=== PATIENT | female | born 1990 | race Hispanic/Latino ===

== ENCOUNTER 2024-08-20 09:20 | Emergency (ER) | payer OTHER, SELFPAY ==
[2024-08-20 09:22] VITALS: BP 123/82
--- NOTE | 2024-08-20 10:28 | ED.GENMED ---
History of Present Illness
General
Chief Complaint: Abdominal Pain
Source: patient
Exam Limitations: none
Time Seen by Provider: 08/20/24 10:05
Nursing documentation reviewed up to this point in time: agreed with
History of Present Illness
History of Present Illness:
34-year-old female presents to the ER for evaluation of left flank pain that has been persistent for 3 weeks. She denies any actual injury. She reports it is there constantly but seems to be worse with movement. She denies any shortness of breath
rib pain. She denies any urinary frequency urgency or dysuria. She denies any associated nausea vomiting rash.
She did take Tylenol for pain which does not seem to relieve her symptoms. She has not taken anything today for pain.
She denies any shortness of breath or rib pain. Denies any recent injury. Denies any lower extremity swelling. She has a history of tubal ligation she does not smoke not on oral contraceptives /hormones no prior history of DVT PE.
Past History
Past History
ED Past Medical History: None
ED Past Surgical History: None
Social History
Tobacco: Non-smoker
Alcohol: None
Drug: None
Personal:
Living: with family
Employment: Not employed
Family History
Family History: Other (Noncontributory)
Review of Systems
Review of Systems
Allergies reviewed?: Yes
All Other Systems: ROS reviewed and negative except as documented in HPI and ROS
Constitutional: Reports no symptoms; Denies fever, fatigue or chills
Respiratory: Reports no symptoms; Denies trouble breathing
Cardiac: Reports no symptoms
ABD/GI: Denies nausea or vomiting
: Reports flank pain; Denies dysuria, frequency or difficulty voiding
Musculoskeletal: Reports no symptoms
Skin: Reports no symptoms
Hematologic/Lymphatic: Reports no symptoms
Psychiatric: Reports no symptoms
Phy Exam
General Physical Exam
General Presentation: no apparent distress
General age: appears stated age
General Skin: warm and dry
General Habitus: normal
General Mental: alert
General Hydration: appears well hydrated
Pulmonary Exam
Pulmonary Exam: lungs clear and no respiratory distress
Gastrointestinal Exam
Gastrointestinal Exam: non tender and soft
Neurological Exam
Neurological Exam: alert and oriented x3
Musculoskeletal Exam
Musculoskeletal Exam: full ROM
Skin Exam
Skin Exam: normal color and warm/dry
Psychiatric Exam
Psychiatric Exam: normal mood/affect
Course
Orders/Labs/Results
Orders:
Orders
08/20/24 10:38
IV Insert/Care/Rem.- Treatment PRN
08/20/24 10:41
CT Abd/pel Without Iv Or Oral Urgent
Comment:
Reason For Exam: left flank pain
08/20/24 10:44
Complete Blood Count/With Diff Urgent
Comprehensive Metabolic Panel Urgent
HCG, Serum Qualitative Screen Urgent
Comment: ADD
Urinalysis Reflex To Culture Urgent
Date Specimen was Collected: 08/20/24
Time Specimen was Collected: 10:42
08/20/24 10:47
Add On- LAB Urgent
Tests Added?: hcg qualitative
08/20/24 11:33
Ketorolac [Toradol] 15 mg IV NOW STA
Abnormal Lab Results
08/20/24
10:44
MPV 10.5 H fL
(7.4-10.4)
Creatinine 0.5 L mg/dL
(0.6-1.0)
08/20/24 10:44
08/20/24 10:44
Vital Signs
Initial and Last Documented VS:
Initial Vital Signs
Temp Pulse Resp BP Pulse Ox
98.2 F 75 16 123/82 98
08/20/24 09:22 08/20/24 09:22 08/20/24 09:22 08/20/24 09:22 08/20/24 09:22
Last Documented Vital Signs
Temp Pulse Resp BP Pulse Ox
98.2 F 74 16 121/77 100
08/20/24 09:22 08/20/24 11:13 08/20/24 11:13 08/20/24 11:13 08/20/24 11:13
[employer] Super[employer] consulted with Physician
[employer] Supervisor consulted with physician?: Yes
Name of Physician Consulted: Chet
MDM/Problems Addressed
Differential Diagnosis Includes:
not limited to: Muscular pain less likely renal colic.
MDM/Problems Addressed:
Symptoms are likely muscular. Patient points to her left flank area however does not present like a kidney stone pain is worse with movement. She has no pain in the rib or chest area she is not short of breath she is nontachycardic nontachypneic
afebrile lungs are clear no DVT PE risk factors. Urinalysis is negative CAT scan done to rule out kidney stone which was negative. She had complete relief with Toradol pain is currently resolved. She has been taking Tylenol at home however I did
advise her to switch to ibuprofen and to return if any worsening of symptoms.
*Radiology
Radiology exam reviewed: radiology read reviewed
*Pulse Oximetry
Patient hypoxic: no
*Critical Care Note
Total Time (30-74mins, 75-104mins- exclusive of procedures): Not Applicable
ED Attending Note
-
Portions of this chart may have been created with voice recognition software.� Occasional wrong word or��sound alike� substitutions may have occurred due to the inherent limitations of voice recognition software.
Discharge Plan
Departure
Patient Disposition: Home (Routine Discharge)
Date of Disposition: 08/20/24
Time of Disposition: 13:27
Patient with high blood pressure during this ER visit?: No
Condition: Fair
Covid-19: Not Applicable
Discharge Problem:
flank pain
Instructions: Muscle and bone pain - Discharge instructions
Prescriptions:
No Action
acetaminophen 325 MG tablet
650 mg PO Q4HPRN PRN (Reason: mild pain) 0RF
ibuprofen 600 MG tablet
600 mg PO Q4HPRN PRN (Reason: cramps) 0RF
Midol
1 tab PO BID PRN (Reason: cramps)
Referrals:
UNKNOWN - PT DOES,NOT KNOW [Family Provider] -
Activity Restrictions/Additional Instructions:
As discussed your CAT scan was negative and your labs unremarkable. Your pain improved with anti-inflammatory here in the ER. Please continue ibuprofen 400 mg every 8 hours with food for the next several days as needed. Take with food. Follow-up
with family doctor in the next 2 days to ensure resolution of symptoms and for reevaluation.
return if any worsening of symptoms.
Interventions
Interventions:
*Risk Screen - Suicide Last Done: 08/20/24 09:22
*General Assessment Last Done: 08/20/24 09:22
*Neglect/Abuse Screening Last Done: 08/20/24 09:22
*ED COVID-19 Vaccine History Last Done: 08/20/24 10:08
ZW-Sturqo-Nubjytfs[facility] Assessment Last Done: 08/20/24 10:08
Discharge Date and Time
Print Language: BERMUDIAN
[2024-08-20 11:02] LABS: Urine Albumin Negative (Neg - Trace); Urine Bilirubin Negative (Negative); Urine Character Clear (Clear); Urine Color Yellow; Urine Glucose Negative (Negative); Urine Ketone Negative (Negative); Urine Leukocyte Negative (Negative); Urine Nitrite Negative (Negative); Urine Occult Blood Negative (Negative); Urine Specific Gravity 1.025 (<1.030); Urine Urobilinogen Negative (Neg - 1+)
[2024-08-20 11:08] LABS: ALT (SGPT) 18 U/L (0-35); AST (SGOT) 23 U/L (14-36); Albumin 4.5 g/dl (3.5-5.0); Alkaline Phosphatase 48 U/L (38-126); Blood Urea Nitrogen 11 mg/dl (7-17); Calcium 8.9 mg/dl (8.4-10.2); Carbon Dioxide 23 mmol/L (22-30); Chloride 106 mmol/L (98-107); Glucose 93 mg/dl (70-99); Potassium 4.4 mmol/L (3.5-5.1); Sodium 139 mmol/L (135-145); Total Bilirubin 0.4 mg/dl (0.2-1.3); Total Protein 7.2 g/dl (6.3-8.2); eGFR > 60.00
[2024-08-20 11:13] VITALS: BP 121/77
[2024-08-20 11:13] LABS: HCG, Serum Qualitative Screen Negative
[2024-08-20 11:14] LABS: % Basophils 0.4 % (0-2); % Eosinophils 1.2 % (0-6); % Immature Granulocytes 0.3 % (0-0.5); % Lymphocytes 30.6 % (20.5-51.1); % Monocytes 6.9 % (1.7-9.3); % Neutrophils 60.6 % (42.2-75.2); Absolute Eosinophils 0.1 10^3/uL (0-0.7); Absolute Lymphocytes 2.3 10^3/uL (1.2-3.4); Absolute Monocytes 0.5 10^3/uL (0.1-0.6); Absolute Neutrophils 4.6 10^3/uL (1.4-6.5); Hematocrit 38.5 % (37.0-47.0); Hemoglobin 12.9 g/dL (12.0-16.0); Mean Corp Hgb Conc. 33.5 g/dL (33.0-37.0); Mean Corpuscular Hgb 29.9 pg (27.0-31.0); Mean Corpuscular Volume 89.1 fL (81.0-99.0); Mean Platelet Volume 10.5 fL (7.4-10.4); Nucleated Red Blood Cells % 0 %; Platelet Count 260 10^3/uL (130-400); Red Blood Cell Count 4.32 10^6/uL (4.20-5.40); Red Cell Dist. Width 12.6 % (11.5-14.5); White Blood Cell Count 7.6 10^3/uL (4.8-10.8)
[2024-08-20] MEDS: TORADOL 15 MG IV (11:37)
[2024-08-20 14:09] VITALS: BP 109/60
== END 2024-08-20 14:10 | disposition home or self-care (01) ==
LOC: EMR 09:20
PROVIDERS: Nurse Practitioner; EMERGENCY PHYSICIAN Student in an Organized Health Care Education/Training Program
DX: R10.9 Unspecified abdominal pain (principal); Z98.51 Tubal ligation status
CPT/HCPCS: 96374; 99284; 74176; 80053; 81003; 84703; 85025